=== PATIENT | female | born 1965 | race Asian ===

== ENCOUNTER 2016-11-24 17:24 | Emergency (ER) | payer OTHER ==
[2016-11-24 17:29] VITALS: BP 152/84; PULSE 81; TEMP 98; BMI 35.6
[2016-11-24] MEDS ORDERED: CYCLOBENZAPRINE HCL 10 MG TABLET (FP) PO ONE (18:02)
[2016-11-24] MEDS ORDERED: KETOROLAC TROMETHAMINE 60 MG/2 ML VIAL IM ONE (18:02)
--- NOTE | 2016-11-24 18:02 | PDOC ---
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 Patient states is frequently lifting and moving patient' s and still wears a back brace for the above. Patient denied knees abdominal pain, shortness of breath, chest pain weakness, rash, or change in urine pattern. Occurred: reports: just prior to arrival Severity: reports: moderate Pain Location: reports: back Method of Injury: Yes: unknown Modifying Factors: improves with: None Loss of Consciousness: no loss of consciousness Associated Symptoms (Fall): denies symptoms Past History - Travel Traveled outside of the country in the last 30 days: No Close contact w/someone who was outside of country & ill: No - Past Medical History Allergies/Adverse Reactions: Allergies Allergy/AdvReac Type Severity Reaction Status Date / Time Penicillins Allergy Severe Difficulty Verified 11/24/16 17:27 Breathing Home Medications: Ambulatory Orders Ergotamine Tartrate/Caffeine [Cafergot Tablet] 1 each PO Q1H PRN #30 tablet Amlodipine Besylate 5 mg PO ASDIR 11/24/16 Ezetimibe [Zetia -] 10 mg PO DAILY 11/24/16 Levothyroxine [Synthroid -] 25 mcg PO DAILY 11/24/16 Metformin HCl 500 mg PO 11/24/16 Simvastatin 10 mg PO 11/24/16 Cardiac Disorders: Yes HTN: Yes Hypercholesterolemia: Yes Thyroid Disease: Yes - Immunization History Immunization Up to Date: Yes - Psycho/Social/Smoking Cessation Hx Suicidal Ideation: No Smoking Status: No Smoking History: Never smoked Number of Cigarettes Smoked Daily: 0 Information on smoking cessation initiated: No Hx Alcohol Use: No Drug/Substance Use Hx: No Patient Lives Alone: No Lives with/in: spouse/SO Trauma Specific PMHX - Complaint Specific PMHX Back Injury: No Review of Systems - Review of Systems Able to Perform ROS?: Yes Is the patient limited Estonian proficient: No Constitutional: No: Symptoms Reported HEENTM: No: Symptoms Reported Respiratory: No: Symptoms reported Cardiac (ROS): No: Symptoms Reported ABD/GI: No: Symptoms Reported Musculoskeletal: Yes: Back Pain (rt mid to low back back) Integumentary: No: Symptoms Reported Neurological: No: Symptoms reported Hematologic/Lymphatic: No: Symptoms Reported *Physical Exam - Vital Signs Last Vital Signs Temp Pulse Resp BP Pulse Ox 98.0 F 81 18 152/84 100 11/24/16 17:27 11/24/16 17:27 11/24/16 17:27 11/24/16 17:27 11/24/16 17:27 - Physical Exam General Appearance: Yes: Nourished, Appropriately Dressed. No: Apparent Distress Neck: negative: Tender, Supple, Decreased range of motion Respiratory/Chest: positive: Lungs Clear, Normal Breath Sounds. negative: Respiratory Distress, Accessory Muscle Use Cardiovascular: positive: Regular Rhythm, Regular Rate. negative: Murmur Gastrointestinal/Abdominal: positive: Soft. negative: Tenderness Musculoskeletal: positive: Muscle Spasm (rt thoracic and lumbar region). negative: Vertebral Tenderness Medical Decision Making - Medical Decision Making 11/24/16 18:14 Patient with complaints of lumbar and thoracic muscle spasm unable to perform strenuous move secondary above. 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 Patient on exam had reproducible pain to the lumbar and thoracic region with no other acute findings or abnormalities. Patient ordered for Toradol and Flexeril will reevaluate shortly. 11/24/16 18:51 patient states feeling much better after the medication. Patient is able to move around without difficulty. Patient be discharged home with the same including a work note for tomorrow since she works in nursing program director at a [employer]. *DC/Admit/Observation/Transfer Diagnosis at time of Disposition: Spasm of back muscles - Discharge Dispostion Disposition: HOME Condition at time of disposition: Improved - Referrals Referrals: Arnoldo Simmons MD [Primary Care Provider] - - Patient Instructions Printed Discharge Instructions: DI for Back Spasm Additional Instructions: Please take medication as needed every 8 hours. Avoid movements that trigger discomfort . May apply ice to the affected area also for the next 3-5 days as much as you can tolerate.
[2016-11-24] MEDS ORDERED: CYCLOBENZAPRINE HCL 10 MG TABLET (FP) ONE (18:11)
[2016-11-24] MEDS ORDERED: KETOROLAC TROMETHAMINE 60 MG/2 ML VIAL ONE (18:11)
[2016-11-24] MEDS ORDERED: KETOROLAC TROMETHAMINE 30 MG/1 ML VIAL ONE (18:13)
== END 2016-11-24 19:09 | disposition home or self-care (01) ==
LOC: JERFT 17:24
PROC: 3E0233Z Introduction of Anti-inflammatory into Muscle, Percutaneous Approach (ICD-10-PCS; principal; 2016-11-24)
DX: M62.830 Muscle spasm of back (principal); I51.9 Heart disease, unspecified; I10 Essential (primary) hypertension; E78.00 Pure hypercholesterolemia, unspecified; E07.9 Disorder of thyroid, unspecified
CPT/HCPCS: 99281-25

== ENCOUNTER 2019-04-21 07:41 | Emergency (ER) | payer OTHER ==
[2019-04-21 07:52] VITALS: BP 145/84; PULSE 98; TEMP 99.2; BMI 35.1
--- NOTE | 2019-04-21 08:14 | PDOC ---
History of Present Illness - General Chief Complaint: Respiratory Stated Complaint: COUGH Time Seen by Provider: 04/21/19 07:56 History Source: Patient Exam Limitations: No Limitations Past History - Past Medical History Allergies/Adverse Reactions: Allergies Allergy/AdvReac Type Severity Reaction Status Date / Time Penicillins Allergy Severe Difficulty Verified 04/21/19 07:52 Breathing Home Medications: Ambulatory Orders Ergotamine Tartrate/Caffeine [Cafergot Tablet] 1 each PO Q1H PRN #30 tablet Amlodipine Besylate 5 mg PO DAILY 11/24/16 Cyclobenzaprine HCl [Flexeril -] 5 mg PO TID PRN #12 tablet 11/24/16 Ezetimibe [Zetia -] 10 mg PO DAILY 11/24/16 Ibuprofen [Motrin -] 600 mg PO TID PRN #21 tablet 11/24/16 Levothyroxine [Synthroid -] 25 mcg PO DAILY 11/24/16 Simvastatin 10 mg PO DAILY 11/24/16 metFORMIN HCL [Metformin HCl] 500 mg PO DAILY 11/24/16 Benzonatate [Tessalon Pearls -] 200 mg PO TID #42 cap 04/21/19 Cardiac Disorders: Yes COPD: No Diabetes: Yes HTN: Yes Hypercholesterolemia: Yes Thyroid Disease: Yes - Immunization History Immunization Up to Date: Yes - Psycho Social/Smoking Cessation Hx Smoking Status: No Smoking History: Never smoked Number of Cigarettes Smoked Daily: 0 Hx Alcohol Use: No Drug/Substance Use Hx: No *Physical Exam - Vital Signs Last Vital Signs Temp Pulse Resp BP Pulse Ox 99.2 F 98 H 20 145/84 99 04/21/19 07:49 04/21/19 07:49 04/21/19 07:49 04/21/19 07:49 04/21/19 07:49 - Physical Exam General Appearance: No: Apparent Distress HEENT: positive: Nasal Congestion. negative: Muffled/Hoarse voice, Pharyngeal Erythema, Tonsillar Exudate, Tonsillar Erythema, Rhinorrhea, Sinus Tenderness Respiratory/Chest: positive: Lungs Clear, Normal Breath Sounds. negative: Respiratory Distress Cardiovascular: positive: Regular Rhythm, Regular Rate, S1, S2. negative: Murmur Gastrointestinal/Abdominal: positive: Normal Bowel Sounds, Soft. negative: Tender, Distended, Guarding, Rebound Integumentary: positive: Normal Color Neurologic: positive: Alert Medical Decision Making - Medical Decision Making 53 y/o F hx of HTN, HLD, DM, hypothyroid presents with dry cough x 3 days along with congestion and throat discomfort from coughing. Mentions she is allergic to Robitussin. States everyone at her work is sick with cold and wanted to make sure she didn't need antibiotics. Denies fever, sob, cp, abd pain, n/v/d. Patient is not on ACEI/ARBS for HTN. Afebrile appears well likely viral uri stable for dc 04/21/19 08:10 Discharge - Discharge Information Problems reviewed: Yes Clinical Impression/Diagnosis: Viral URI Condition: Stable Disposition: HOME - Admission No - Additional Discharge Information Prescriptions: Benzonatate [Tessalon Pearls -] 200 mg PO TID #42 cap Prescription Drug Monitoring Program (I-STOP) results: I-STOP not reviewed - Follow up/Referral Referrals: Janna Hall MD [Primary Care Provider] - 2 Days - Patient Discharge Instructions Patient Printed Discharge Instructions: DI for Viral Upper Respiratory Infection -- Adult Additional Instructions: Thank you for choosing [facility]. It was a pleasure taking care of you. You may take Tessalon Perles as directed for the cough Recommend rest/hydration You may use humidifier at night Return to the Emergency Department if your symptoms worsen or persist or have other concerning symptoms. - Post Discharge Activity
== END 2019-04-21 08:19 | disposition home or self-care (01) ==
LOC: JER 07:41
DX: J06.9 Acute upper respiratory infection, unspecified (principal); B97.89 Other viral agents as the cause of diseases classified elsewhere; I10 Essential (primary) hypertension; E78.5 Hyperlipidemia, unspecified; E11.9 Type 2 diabetes mellitus without complications; Z79.84 Long term (current) use of oral hypoglycemic drugs; E03.9 Hypothyroidism, unspecified; Z88.0 Allergy status to penicillin; Z88.8 Allergy status to other drugs, medicaments and biological substances
CPT/HCPCS: 99281-25